=== PATIENT | male | born 1985 | race Caucasian/White ===

== ENCOUNTER 2017-11-29 15:29 | Emergency (ER) | payer OTHER ==
[~2017-11-29] VITALS: Ht 180.3 cm; Wt 68.0 kg
[~2017-11-29 15:29] MED LIST: ALBU90OI INH; AMOCLA875 PO; AMOX500 PO; Bactrim Ds Tab1 EACH PO; CEPH500 PO; CRUTCH3 USE; CYCL10 PO; Cleocin HCl150 MG PO; Crutch1 EACH MISC; HYDACE10B PO; HYDACE5 PO; HYDACE5325 PO; IBUP600 PO; IBUP800 PO; KETO10 PO; Keflex500 MG PO; Monodox100 MG PO; NAPR500 PO; Naprosyn500 MG PO; Norco 10-325 T1 EACH PO; Norco 5-325 Ta1 EACH PO; OXYACE5T PO; PENVK500 PO; PROM25 PO; Percocet 5-3251 EACH PO; Permethrin60 GM UD; RXCEPH500 PO; RXHYD5325 PO; RXHYDACE PO; RXSULTRIDS PO; RXTRAM50 PO; SULTRIDS PO; TOLN1TC TOP; TRAM50 PO; Tylenol325 MG PO; Ultram50 MG PO; Veetids 500500 MG PO
[2017-11-29] MEDS ORDERED: LAMISIL AT30 GM TOP (16:01)
== END 2017-11-29 16:07 | disposition home or self-care (01) ==
LOC: ER 15:29
DX: B35.4 Tinea corporis (principal); Z79.899 Other long term (current) drug therapy; F17.200 Nicotine dependence, unspecified, uncomplicated; Z98.890 Other specified postprocedural states
CPT/HCPCS: 99282

== ENCOUNTER 2018-05-24 05:40 | Emergency (ER) | payer OTHER ==
[~2018-05-24] VITALS: Ht 180.3 cm; Wt 70.3 kg
[~2018-05-24 05:40] MED LIST changes: +LAMISIL AT30 GM TOP
[2018-05-24] MEDS ORDERED: Bactrim Ds Tab1 EACH PO (06:10)
== END 2018-05-24 06:30 | disposition home or self-care (01) ==
LOC: ER 05:40
DX: N48.21 Abscess of corpus cavernosum and penis (principal); N48.22 Cellulitis of corpus cavernosum and penis; B95.62 Methicillin resistant Staphylococcus aureus infection as the cause of diseases classified elsewhere; F17.210 Nicotine dependence, cigarettes, uncomplicated
CPT/HCPCS: 99283

== ENCOUNTER 2018-10-22 13:33 | Emergency (ER) | payer OTHER ==
[~2018-10-22] VITALS: Ht 180.3 cm; Wt 70.3 kg
== END 2018-10-22 15:11 | disposition home or self-care (01) ==
LOC: ER 13:33
DX: K11.5 Sialolithiasis (principal); F17.210 Nicotine dependence, cigarettes, uncomplicated
CPT/HCPCS: 99282

== ENCOUNTER 2018-11-04 12:54 | Emergency (ER) | payer OTHER ==
[~2018-11-04] VITALS: Ht 180.3 cm; Wt 63.5 kg
[2018-11-04 13:18] LABS: BASOPHILS ABSOLUTE AUTO 0.06 K/mm3 (0.00-0.23); BASOPHILS PERCENT AUTO 1 % (0-2); EOSINOPHILS ABSOLUTE AUTO 0.07 K/mm3 (0.00-0.68); EOSINOPHILS PERCENT AUTO 1 % (0-6); Hematocrit 47.2 % (37.0-53.0); Hemoglobin 15.8 g/dL (13.5-17.5); IMMATURE GRAN ABSOLUTE AUTO 0.01 K/mm3 (0.00-0.10); IMMATURE GRAN PERCENT AUTO 0 % (0-1); LYMPHOCYTES ABSOLUTE AUTO 1.57 K/mm3 (0.84-5.20); LYMPHOCYTES PERCENT AUTO 29 % (21-46); MONOCYTES PERCENT AUTO 9 % (4-13); Mean Corpuscular HGB 29.8 pg (26.0-34.0); Mean Corpuscular HGB Conc 33.5 g/dL (31.5-36.5); Mean Corpuscular Volume 89 fL (80-100); Mean Platelet Volume 10.2 fL (9.1-12.4); NEUTROPHILS ABSOLUTE AUTO 3.13 K/mm3 (1.96-9.15); NEUTROPHILS PERCENT AUTO 59 % (41-73); Platelet Count 292 K/mm3 (150-400); RDW Coefficient Variation 12.5 % (11.7-14.2); RDW Standard Deviation 40.9 fL (35.1-46.3); Red Blood Cell Count 5.31 M/mm3 (4.30-5.90); White Blood Cell Count 5.34 K/mm3 (4.00-11.30)
[2018-11-04 13:37] LABS: Alanine Aminotransfer (ALT/SGP 17 U/L (12-78); Albumin, Blood 4.5 g/dL (3.4-5.0); Albumin/Globulin Ratio 1.4 (0.8-1.8); Alk Phos 45 U/L (50-136); Anion Gap 8 mmol/L (6-16); Aspartate Aminotrans (AST/SGOT 11 U/L (12-37); Bilirubin, Total 0.8 mg/dL (0.1-1.0); Blood Urea Nitrogen 13 mg/dL (8-24); Bun/Creatinine Ratio 13.8 (12.0-20.0); CO2, Blood 25 mmol/L (21-32); Calcium, Blood 8.6 mg/dL (8.5-10.1); Chloride, Blood 109 mmol/L (98-108); Creatinine, Blood 0.94 mg/dL (0.60-1.20); Globulin, Blood 3.2 g/dL (2.2-4.0); Glomerular Filtration Rate >60 (60-); Glucose, Blood 97 mg/dL (70-99); Potassium, Blood 3.9 mmol/L (3.5-5.5); Sodium, Blood 142 mmol/L (136-145); Total Protein, Blood 7.7 g/dL (6.4-8.2)
[2018-11-04] MEDS ORDERED: ONDA4ODT MM (15:35)
== END 2018-11-04 15:53 | disposition home or self-care (01) ==
LOC: ER 12:54
PROVIDERS: Physician Assistant
DX: R55 Syncope and collapse (principal); F17.200 Nicotine dependence, unspecified, uncomplicated
CPT/HCPCS: 36415; 80053; 85025; 93005; 93010; 96360; 99284-25; J7030

== ENCOUNTER 2019-01-21 17:16 | Emergency (ER) | payer OTHER ==
[~2019-01-21] VITALS: Ht 180.3 cm; Wt 70.3 kg
[~2019-01-21 17:16] MED LIST changes: +ONDA4ODT MM
[2019-01-21 18:17] LABS: BASOPHILS ABSOLUTE AUTO 0.05 K/mm3 (0.00-0.23); BASOPHILS PERCENT AUTO 1 % (0-2); EOSINOPHILS ABSOLUTE AUTO 0.06 K/mm3 (0.00-0.68); EOSINOPHILS PERCENT AUTO 1 % (0-6); Hematocrit 45.9 % (37.0-53.0); Hemoglobin 14.9 g/dL (13.5-17.5); IMMATURE GRAN ABSOLUTE AUTO 0.04 K/mm3 (0.00-0.10); IMMATURE GRAN PERCENT AUTO 0 % (0-1); LYMPHOCYTES ABSOLUTE AUTO 1.82 K/mm3 (0.84-5.20); LYMPHOCYTES PERCENT AUTO 17 % (21-46); MONOCYTES ABSOLUTE AUTO 0.46 K/mm3 (0.16-1.47); MONOCYTES PERCENT AUTO 4 % (4-13); Mean Corpuscular HGB 29.3 pg (26.0-34.0); Mean Corpuscular HGB Conc 32.5 g/dL (31.5-36.5); Mean Corpuscular Volume 90 fL (80-100); Mean Platelet Volume 10.2 fL (9.1-12.4); NEUTROPHILS ABSOLUTE AUTO 8.26 K/mm3 (1.96-9.15); NEUTROPHILS PERCENT AUTO 77 % (41-73); Platelet Count 283 K/mm3 (150-400); RDW Coefficient Variation 12.7 % (11.7-14.2); RDW Standard Deviation 42.1 fL (35.1-46.3); Red Blood Cell Count 5.09 M/mm3 (4.30-5.90); White Blood Cell Count 10.69 K/mm3 (4.00-11.30)
[2019-01-21 18:46] LABS: Alanine Aminotransfer (ALT/SGP 18 U/L (12-78); Albumin, Blood 4.2 g/dL (3.4-5.0); Albumin/Globulin Ratio 1.3 (0.8-1.8); Alk Phos 49 U/L (50-136); Anion Gap 7 mmol/L (6-16); Aspartate Aminotrans (AST/SGOT 11 U/L (12-37); Bilirubin, Total 0.4 mg/dL (0.1-1.0); Blood Urea Nitrogen 11 mg/dL (8-24); CO2, Blood 24 mmol/L (21-32); Calcium, Blood 8.7 mg/dL (8.5-10.1); Chloride, Blood 107 mmol/L (98-108); Creatinine, Blood 0.79 mg/dL (0.60-1.20); Globulin, Blood 3.3 g/dL (2.2-4.0); Glomerular Filtration Rate >60 (60-); Glucose, Blood 166 mg/dL (70-99); Potassium, Blood 3.4 mmol/L (3.5-5.5); Sodium, Blood 138 mmol/L (136-145); Total Protein, Blood 7.5 g/dL (6.4-8.2); Troponin I <0.015 ng/mL (0.000-0.040)
== END 2019-01-21 21:51 | disposition home or self-care (01) ==
LOC: ER 17:16
PROVIDERS: Physician Assistant
DX: R07.9 Chest pain, unspecified (principal); F17.210 Nicotine dependence, cigarettes, uncomplicated
CPT/HCPCS: 36415; 71046; 80053; 83690; 84484; 85025; 93005; 93010; 96374; 99284-25; J1885

== ENCOUNTER 2019-04-22 15:43 | Emergency (ER) | payer OTHER ==
[~2019-04-22] VITALS: Ht 180.3 cm; Wt 65.8 kg
[2019-04-22] MEDS ORDERED: NAPR550 PO (17:03)
== END 2019-04-22 17:17 | disposition home or self-care (01) ==
LOC: ER 15:43
DX: S70.01XA Contusion of right hip, initial encounter (principal); F17.200 Nicotine dependence, unspecified, uncomplicated; V09.9XXA Pedestrian injured in unspecified transport accident, initial encounter
CPT/HCPCS: 73502; 96372; 99283-25; J1885

== ENCOUNTER 2019-11-03 20:11 | Emergency (ER) | payer OTHER ==
[~2019-11-03] VITALS: Ht 180.3 cm; Wt 63.5 kg
[~2019-11-03 20:11] MED LIST changes: +NAPR550 PO
[2019-11-03] MEDS ORDERED: KETO10 PO (20:47)
[2019-11-03] MEDS ORDERED: CYCL10 PO (20:47)
== END 2019-11-03 21:23 | disposition home or self-care (01) ==
LOC: ER 20:11
DX: M62.830 Muscle spasm of back (principal); Z79.899 Other long term (current) drug therapy; F17.210 Nicotine dependence, cigarettes, uncomplicated
CPT/HCPCS: 99283

== ENCOUNTER 2020-10-02 14:34 | Emergency (ER) | payer OTHER ==
[~2020-10-02] VITALS: Ht 180.3 cm; Wt 65.8 kg
[2020-10-02] MEDS ORDERED: Norco 5-325 Ta1 EACH PO ×2 (15:15→16:54)
== END 2020-10-02 15:18 | disposition home or self-care (01) ==
LOC: ER 14:34
DX: M75.101 Unspecified rotator cuff tear or rupture of right shoulder, not specified as traumatic (principal); F17.210 Nicotine dependence, cigarettes, uncomplicated
CPT/HCPCS: 99283

== ENCOUNTER 2020-10-10 10:22 | Emergency (ER) | payer OTHER ==
[~2020-10-10] VITALS: Ht 170.2 cm; Wt 70.3 kg
== END 2020-10-10 10:45 | disposition home or self-care (01) ==
LOC: ER 10:22
DX: M25.511 Pain in right shoulder (principal); F17.210 Nicotine dependence, cigarettes, uncomplicated
CPT/HCPCS: 99282

== ENCOUNTER 2023-03-10 14:04 | Emergency (ER) | payer OTHER ==
[~2023-03-10] VITALS: Ht 180.3 cm; Wt 70.3 kg
[2023-03-10 14:46] VITALS: BP 107/72
[2023-03-10] MEDS ORDERED: Triamcinolone A15 G3 TOP (15:49)
== END 2023-03-10 16:04 | disposition home or self-care (01) ==
LOC: ER 14:04
DX: L29.9 Pruritus, unspecified (principal); L50.9 Urticaria, unspecified; F17.210 Nicotine dependence, cigarettes, uncomplicated
CPT/HCPCS: 99282

== ENCOUNTER 2023-03-27 12:48 | Emergency (ER) | payer OTHER ==
[~2023-03-27] VITALS: Ht 180.3 cm; Wt 70.3 kg
[~2023-03-27 12:48] MED LIST changes: +Triamcinolone A15 G3 TOP
[2023-03-27 12:51] VITALS: BP 124/88
[2023-03-27] MEDS ORDERED: POLYTRIM EYE DR10 M1 LEFTEYE (14:52)
== END 2023-03-27 15:00 | disposition home or self-care (01) ==
LOC: ER 12:48
DX: S05.02XA Injury of conjunctiva and corneal abrasion without foreign body, left eye, initial encounter (principal); X58.XXXA Exposure to other specified factors, initial encounter; F17.210 Nicotine dependence, cigarettes, uncomplicated
CPT/HCPCS: 99283; A9270

== ENCOUNTER 2024-06-01 15:14 | Emergency (ER) | payer OTHER ==
[~2024-06-01] VITALS: Ht 180.3 cm; Wt 70.3 kg
[~2024-06-01 15:14] MED LIST changes: +POLYTRIM EYE DR10 M1 LEFTEYE
[2024-06-01 15:32] VITALS: BP 112/68
== END 2024-06-01 16:06 | disposition home or self-care (01) ==
LOC: ER 15:14
DX: S22.31XA Fracture of one rib, right side, initial encounter for closed fracture (principal); W01.198A Fall on same level from slipping, tripping and stumbling with subsequent striking against other object, initial encounter; F17.290 Nicotine dependence, other tobacco product, uncomplicated
CPT/HCPCS: 71101; 99283-25

== ENCOUNTER 2024-10-26 16:50 | Emergency (ER) | payer OTHER ==
[~2024-10-26] VITALS: Ht 180.3 cm; Wt 70.3 kg
[2024-10-26 16:55] VITALS: BP 110/71
[2024-10-26] MEDS ORDERED: Tetanus,Diphtheria Toxd Ped/Pf 0.5 ML VIAL IM ONE (17:00)
[2024-10-26] MEDS ORDERED: Diphth,Pertuss(Acell),Tet Vac 0.5 ML VIAL IM ONE (17:10)
== END 2024-10-26 18:19 | disposition home or self-care (01) ==
LOC: ER 16:50
DX: S01.81XA Laceration without foreign body of other part of head, initial encounter (principal); W22.8XXA Striking against or struck by other objects, initial encounter; F17.290 Nicotine dependence, other tobacco product, uncomplicated; Z23 Encounter for immunization; Z79.899 Other long term (current) drug therapy
CPT/HCPCS: 12013; 90471; 90702; 90715; 99282-25

== ENCOUNTER 2025-04-12 10:49 | Day surgery (SDC) | payer OTHER ==
[~2025-04-12] VITALS: Ht 180.3 cm; Wt 61.5 kg
[2025-04-12] MEDS ORDERED: Tranexamic Acid 100 ML IV ONE (10:58)
[2025-04-12] MEDS ORDERED: CeFAZolin Sodium 2,000 MG VIAL ONE (10:58)
[2025-04-12] MEDS ORDERED: Midazolam HCl 1MG / ML 2ML Vial ONE (11:50)
[2025-04-12] MEDS ORDERED: FentaNYL Citrate 50 MCG/ML 2 ML Injection ONE (11:50)
[2025-04-12] MEDS ORDERED: Bupivacaine 0.5% HCl 5 MG/ML 30MLVIAL ONE (11:51)
--- NOTE | 2025-04-12 12:17 | NUR ---
04/12/25 [facility] DONALD BLACKMAN NOTIFIED THAT HR WAS 46 APICAL. PT REPROTS NORMAL FOR HIM TO HAVE SLOWER HEART RATE. PER DONALD BLACKMAN OK TO PROCEED.
[2025-04-12] MEDS ORDERED: Rocuronium Bromide 10 MG/ML 5ML Injection IV ONE (12:32)
[2025-04-12] MEDS ORDERED: Dexamethasone Sod Phos 10 MG/ML 1ML VIAL ONE (12:40)
[2025-04-12] MEDS ORDERED: Ondansetron HCl 2 MG / ML 2ML Vial ONE (12:40)
[2025-04-12] MEDS ORDERED: Ketorolac Tromethamine 30mg Vial ONE (12:41)
--- NOTE | 2025-04-12 13:04 | NUR ---
04/12/25 1304 Ariel Ibarra 1 MG TXA IV, STARTED IN OR BY MO EVIDENCE CUSTODIAN AT 1230.
[2025-04-12] MEDS ORDERED: Sugammadex Sodium 200 MG/2ML SDV (100 MG/ML) ONE (14:00)
--- NOTE | 2025-04-12 14:32 | NUR ---
04/12/25 1432 DEAN MARLEY DECREASED O2 FROM 10L TO 6L VIA NON-REBREATHER.
[2025-04-12 14:48] VITALS: BP 109/68
--- NOTE | 2025-04-12 15:01 | NUR ---
04/12/25 [facility] NO PAIN OR NAUSEA. SBA INTO RECLINER, HOOKED UP TO POLAR PACK, ASSISTED TO PUT PANTS ON. TOLERATING PO FLUIDS. CAPILLARY REFILL <3 SECONDS.
== END 2025-04-12 15:57 | disposition home or self-care (01) ==
LOC: ORSCSDS 10:49
PROVIDERS: Orthopaedic Surgery Sports Medicine
PROC: 0RQJ4ZZ Repair Right Shoulder Joint, Percutaneous Endoscopic Approach (ICD-10-PCS; principal; 2025-04-12 12:30)
DX: S43.431A Superior glenoid labrum lesion of right shoulder, initial encounter (principal); M75.51 Bursitis of right shoulder; M25.511 Pain in right shoulder; V86.95XS Unspecified occupant of 3- or 4- wheeled all-terrain vehicle (ATV) injured in nontraffic accident, sequela
CPT/HCPCS: C1713; J0165; J0690; J1100; J1885; J2250; J2405; J2704; J3010; J7120